=== PATIENT | female | born 1995 | race Caucasian/White ===

== ENCOUNTER 2017-07-24 07:51 | Emergency (ER) | payer OTHER ==
[~2017-07-24] VITALS: Ht 160 cm; Wt 83.9 kg
[~2017-07-24 07:51] MED LIST: GILDESS FE 1-21 EACH PO; LEVAQUIN500 MG PO; LEVAQUIN750 MG; NUVARING VAGIN1 EACH; Z.0.ENABLEX7.5 MG; Z.1.NITROFURANTOIN10; ZOLOFT25 MG PO; [UNRECOGNIZED DRUG - OTHER]
[2017-07-24 09:20] LABS: BASOPHILS # (AUTO) 0.1 (0.0-0.1); BASOPHILS % 0.7 % (0.0-1.0); EOSINOPHILS # (AUTO) 0.1 (0.0-0.4); EOSINOPHILS % 0.9 % (0.0-6.0); HEMATOCRIT 42.8 % (34.2-44.1); HEMOGLOBIN 13.7 g/dL (12.0-16.0); LYMPHOCYTES # (AUTO) 1.5 (1.0-3.2); LYMPHOCYTES % 14.9 % (18.0-39.1); MEAN CORPUSCULAR HEMOGLOBIN 27.2 pg (28-32); MEAN CORPUSCULAR VOLUME 84.9 fL (81-99); MONOCYTES # (AUTO) 0.8 (0.2-0.8); MONOCYTES % 7.6 % (4.4-11.3); NEUTROPHILS # (AUTO) 7.8 (2.1-6.9); NEUTROPHILS % 75.6 % (38.7-80.0); PLATELET COUNT 356 x10e3/uL (140-360); RED BLOOD COUNT 5.04 x10e6/uL (3.6-5.1); RED CELL DISTRIBUTION WIDTH 13.9 % (11.7-14.4)
[2017-07-24 09:21] LABS: BILIRUBIN,URINE NEGATIVE (NEGATIVE); KETONES,URINE NEGATIVE (NEGATIVE); LEUKOCYTE ESTERASE ,URINE TRACE (NEGATIVE); NITRITE,URINE NEGATIVE (NEGATIVE); URINE UROBILINOGEN 0.2 mg/dL (0.2 - 1)
[2017-07-24 09:23] LABS: PROTEIN,URINE DIPSTICK 1+ (NEGATIVE)
[2017-07-24 09:33] LABS: BACTERIA,URINE MODERATE /HPF; CLARITY,URINE CLOUDY (CLEAR); COLOR,URINE YELLOW (YELLOW); EPITHELIAL CELLS,URINE MANY /LPF; RBC,URINE >50 /HPF (0-5)
[2017-07-24 09:45] LABS: ANION GAP 11.4 mmol/L (8-16); BLOOD UREA NITROGEN 12 mg/dL (7-26); BUN/CREATININE RATIO 14 (6-25); CALCIUM 9.5 mg/dL (8.4-10.2); CARBON DIOXIDE 27 mmol/L (22-29); CHLORIDE 107 mmol/L (98-107); CREATININE, SERUM 0.88 mg/dL (0.57-1.11); EST GLOMERULAR FILTRATION RATE > 60 ML/MIN (60-); GLUCOSE 94 mg/dL (74-118); POTASSIUM 4.4 mmol/L (3.5-5.1); SODIUM 141 mmol/L (136-145)
--- NOTE | 2017-07-24 12:56 | Diagnostic Imaging Report ---
EXAM: CT Abdomen and Pelvis WITHOUT contrast INDICATION: Right flank pain, complete duplication of the left ureter COMPARISON: CT abdomen and pelvis from 07/27/2011 TECHNIQUE: Abdomen and pelvis were scanned utilizing a multidetector helical scanner from the lung base to the pubic symphysis without administration of IV contrast. Absence of intravenous contrast decreases sensitivity for detection of focal lesions and vascular pathology. Coronal and sagittal reformations were obtained. Routine protocol was performed. IV CONTRAST: None. ORAL CONTRAST: Water RADIATION DOSE: Total DLP: 621.2 mGy*cm Estimated effective dose: (DLP x 0.015 x size factor) mSv COMPLICATIONS: None FINDINGS: LINES and TUBES: None. LOWER THORAX: Unremarkable HEPATOBILIARY: No focal hepatic lesions. No biliary ductal dilation. GALLBLADDER: No radio-opaque stones or sludge. No wall thickening. SPLEEN: No splenomegaly. PANCREAS: No focal masses or ductal dilatation. ADRENALS: No adrenal nodules KIDNEYS/URETERS: No hydronephrosis. No cystic or solid mass lesions. Bilateral nephrolithiasis has decreased on the right but increased on the left. There are at least 2 up to 3 mm right renal stones and 9 at to 5-mm left renal stones. 7 mm calcified stone within the proximal right ureter 2.5 cm below the UP junction results in mild hydroureteronephrosis. Duplicated left collecting system. No calcified stones in the left ureters. GI TRACT: No abnormal distention, wall thickening, or evidence of bowel obstruction. What appears to be the appendix is atretic and diffusely calcified. PELVIC ORGANS/BLADDER: Unremarkable. Specifically, no calcified stones in the urinary bladder. IUD within the uterus. LYMPH NODES: No lymphadenopathy. VESSELS: Unremarkable. PERITONEUM / RETROPERITONEUM: No free air or fluid. BONES: Unremarkable. SOFT TISSUES: Unremarkable. IMPRESSION: 1. Mild obstructing 7 mm right proximal ureteral stone. 2. Bilateral nephrolithiasis, decreased on the right but increased on the left when compared to 07/27/2011. Signed by: Dr. Veronica Dao M.D. on 07/24/2017 12:53 PM
== END 2017-07-24 12:32 | disposition home or self-care (01) ==
LOC: ER 07:51
DX: R10.31 Right lower quadrant pain (principal); N20.0 Calculus of kidney; N39.0 Urinary tract infection, site not specified
CPT/HCPCS: 36415; 74176; 80048; 81001; 81025; 85025; 87086; 87186; 99284

== ENCOUNTER 2018-04-24 19:54 | Emergency (ER) | payer OTHER ==
[~2018-04-24] VITALS: Ht 160 cm; Wt 83.9 kg
[2018-04-24] MEDS ORDERED: KETOROLAC TROMETHAMINE 60 MG/2 ML VIAL IM ONE ×2 (21:15→22:45)
--- NOTE | 2018-04-24 21:22 | Diagnostic Imaging Report ---
EXAM: CT ABDOMEN AND PELVIS WITH IV CONTRAST INDICATION: Suprapubic pain, hematuria COMPARISON: CT of the abdomen and pelvis without IV contrast and during 2017 TECHNIQUE: The abdomen and pelvis were scanned using a multidetector helical scanner. Coronal and sagittal reformations were obtained. Dose modulation, iterative reconstruction, and/or weight based adjustment of the mA/kV was utilized to reduce the radiation dose to as low as reasonably achievable. Renal stone protocol performed. IV Contrast: None Oral Contrast: None CTDIvol has been reviewed. It is below the limits set by the Radiation Protocol Committee (RPC). FINDINGS: LOWER THORAX: No consolidations LIVER: No masses BILIARY: Normal gallbladder. No ductal dilation. SPLEEN: No masses PANCREAS: No masses ADRENALS: No nodules KIDNEYS: There is a 3 mm stone in the right kidney. No ureteral stones. No hydronephrosis. There are at least 8 stones in the left kidney, the largest measures 6 mm. No ureteral stones. No hydronephrosis. GI TRACT: No wall thickening or obstruction. Surgical changes of appendectomy. VESSELS: Unremarkable PERITONEUM/RETROPERITONEUM: No free air or fluid LYMPH NODES: No lymphadenopathy REPRODUCTIVE ORGANS: IUD within the uterus. BLADDER: Normal SOFT TISSUES: Normal BONES: No suspicious bone lesions. IMPRESSION: Bilateral nephrolithiasis. No obstruction or hydronephrosis. Signed by: Dr. Germaine Ryan M.D. on 04/24/2018 9:19 PM
[2018-04-24] MEDS ORDERED: PYRIDIUM100 MG PO (22:37)
[2018-04-24] MEDS ORDERED: ULTRAM50 MG PO (22:38)
[2018-04-24 22:41] VITALS: BP 125/84
--- OUTSIDE RECORDS SUMMARY | 2018-04-26 14:09 | XMS REPORT | Clinical Summary ---
Author Author [facility] Address Unknown Phone Unavailable Care Team Providers Care Water Resources Project Manager Name Role Phone Nas Rodrigues PCP Allergies No Known Allergies Current Medications Prescription Sig. Disp. Refills Start End Date Status Date phentermine 30 MG capsule Take by mouth every Active morning. acetaminophen-codeine Take 1-2 tablets by mouth 20 tablet 0 08/03/19 08/13/19 (TYLENOL WITH CODEINE #3) every 6 (six) hours as 18 18 300-30 mg per tablet needed for moderate pain for up to 10 days. tamsulosin (FLOMAX) 0.4 Take 1 capsule (0.4 mg 10 capsule 0 08/03/19 08/13/19 mg capsule,extended total) by mouth daily for 18 18 release 24hr 10 days. promethazine (PHENERGAN) Take 1 tablet (25 mg 30 tablet 0 08/03/19 09/02/19 25 MG tablet total) by mouth every 6 18 18 (six) hours as needed for nausea or vomiting for up to 30 days. promethazine (PHENERGAN) Take 1 tablet (12.5 mg 15 tablet 0 03/10/20 04/09/20 12.5 MG tablet total) by mouth every 6 18 18 (six) hours as needed for nausea or vomiting for up to 30 days. phenazopyridine Take 1 tablet (200 mg 10 tablet 0 03/10/20 03/13/20 (PYRIDIUM) 200 MG tablet total) by mouth 3 (three) 18 18 times daily after meals for 3 days. HYDROcodone-acetaminophen Take 1 tablet by mouth 8 tablet 0 03/10/20 03/13/20 (NORCO) 7.5-325 mg per every 6 (six) hours as 18 18 tablet needed for moderate pain for up to 3 days. Max Daily Amount: 4 tablets promethazine (PHENERGAN) Take 1 tablet (50 mg 15 tablet 0 03/10/20 04/09/20 50 MG tablet total) by mouth every 6 18 18 (six) hours as needed for nausea or vomiting for up to 30 days. tamsulosin (FLOMAX) 0.4 Take 1 capsule (0.4 mg 5 capsule 0 03/10/20 03/15/20 mg capsule total) by mouth daily for 18 18 5 days. Active Problems Problem Noted Date Renal stone 03/09/2018 Encounters Date Type Specialty Care Team Description 03/09/2018 Emergency General Internal Medicine Rosmery Rodriguez MD Renal stone (Primary Dx) - Drew Bennett MD 03/10/2018 Meli Andre MD 08/03/2017 Emergency Emergency Medicine Tyrell Beck MD Kidney stone on right side (Primary Dx); Ureterolithiasis after 04/23/2017 Social History Tobacco Use Types Packs/Day Years Used Date Never Smoker Smokeless Tobacco: Never Used Alcohol Use Drinks/Week oz/Week Comments No Sex Assigned at Date Recorded Not on file Last Filed Vital Signs Vital Sign Reading Time Taken Blood Pressure 109/66 03/10/2018 8:07 AM CDT Pulse 73 03/10/2018 8:07 AM CDT Temperature 37.2 C (99 F) 03/10/2018 8:07 AM CDT Respiratory Rate 18 03/10/2018 3:53 AM CDT Oxygen Saturation 99% 03/10/2018 3:53 AM CDT Inhaled Oxygen - - Concentration Weight 49.1 kg (108 lb 3.2 oz) 03/09/2018 11:28 PM CDT Height 160 cm (5' 3") 03/09/2018 5:51 PM CDT Body Mass Index 19.17 03/09/2018 11:28 PM CDT Plan of Treatment Health Maintenance Due Date Last Done Comments CHLAMYDIA SCREENING 2010 CERVICAL CANCER SCREENING 2015 INFLUENZA VACCINE 02/09/2018 04/10/2016 Procedures Procedure Name Priority Date/Time Associated Diagnosis Comments ZZESTIMATED GFR Routine 03/10/2018 Results for this 5:32 AM CDT procedure are in the results section. COMPREHENSIVE METABOLIC Routine 03/10/2018 Results for this PANEL 5:32 AM CDT procedure are in the results section. HC COMPLETE BLD COUNT Routine 03/10/2018 Results for this W/AUTO DIFF 5:32 AM CDT procedure are in the results section. CT RENAL STONE PROTOCOL STAT 03/09/2018 Results for this 6:47 PM CDT procedure are in the results section. HCG QUALITATIVE, URINE STAT 03/09/2018 Results for this SCREEN 6:06 PM CDT procedure are in the results section. URINALYSIS STAT 03/09/2018 Results for this 6:06 PM CDT procedure are in the results section. GRAM STAIN Routine 03/09/2018 Results for this 6:06 PM CDT procedure are in the results section. URINE CULTURE Routine 03/09/2018 Results for this 6:06 PM CDT procedure are in the results section. ZZESTIMATED GFR STAT 03/09/2018 Results for this 5:54 PM CDT procedure are in the results section. HC COMPLETE BLD COUNT STAT 03/09/2018 Results for this W/AUTO DIFF 5:54 PM CDT procedure are in the results section. LIPASE LEVEL STAT 03/09/2018 Results for this 5:54 PM CDT procedure are in the results section. COMPREHENSIVE METABOLIC STAT 03/09/2018 Results for this PANEL 5:54 PM CDT procedure are in the results section. CT RENAL STONE PROTOCOL STAT 08/03/2017 Results for this 12:51 PM MEDIA DEVELOPER procedure are in the results section. ZZESTIMATED GFR STAT 08/03/2017 Results for this 10:21 AM MEDIA DEVELOPER procedure are in the results section. HCG QUALITATIVE, URINE STAT 08/03/2017 Results for this SCREEN 10:21 AM MEDIA DEVELOPER procedure are in the results section. URINALYSIS SCREEN AND STAT 08/03/2017 Results for this MICROSCOPY, WITH REFLEX 10:21 AM MEDIA DEVELOPER procedure are in the TO CULTURE results section. COMPREHENSIVE METABOLIC STAT 08/03/2017 Results for this PANEL 10:21 AM MEDIA DEVELOPER procedure are in the results section. HC COMPLETE BLD COUNT STAT 08/03/2017 Results for this W/AUTO DIFF 10:21 AM MEDIA DEVELOPER procedure are in the results section. GRAM STAIN STAT 08/03/2017 Results for this 10:10 AM MEDIA DEVELOPER procedure are in the results section. URINE CULTURE STAT 08/03/2017 Results for this 10:10 AM MEDIA DEVELOPER procedure are in the results section. after 04/23/2017 Results * Estimated GFR (03/10/2018 5:32 AM) Only the most recent of 3 results within the time period is included. GFR Non Af Amer 88 mL/min/1.[address] [facility] DEPARTMENT OF PATHOLOGY AND GENOMIC MEDICINE GFR Af Amer >90 mL/min/1.[address] [facility] DEPARTMENT OF Comment: PATHOLOGY AND Chronic kidney disease: <60 GENOMIC MEDICINE mL/min/1.73m2 Kidney failure: <15 mL/min/1.73m2 The estimated GFR is calculated from the IDMS-traceable Modification of Diet in Renal Disease Equation. The accuracy of the calculation is poor when the creatinine is normal. Calculated values >90 mL/min/1.73m2 are not reported. This equation has not been validated in children (<18 years), women, the elderly (>70 years), or ethnic groups other than Caucasians and Americans. Specimen Plasma specimen Performing Organization Address City/State/Zipcode Phone Number [facility] DEPARTMENT OF [address] [place] [address] PATHOLOGY AND GENOMIC MEDICINE * CBC with platelet and differential (03/10/2018 5:32 AM) Only the most recent of 3 results within the time period is included. WBC 8.62 4.50 - 11.00 k/uL [facility] DEPARTMENT OF PATHOLOGY AND GENOMIC MEDICINE RBC 4.31 4.20 - 5.50 m/uL [facility] DEPARTMENT OF PATHOLOGY AND GENOMIC MEDICINE HGB 12.8 12.0 - 16.0 g/dL [facility] DEPARTMENT OF PATHOLOGY AND GENOMIC MEDICINE HCT 38.6 37.0 - 47.0 % [facility] DEPARTMENT OF PATHOLOGY AND GENOMIC MEDICINE MCV 89.6 82.0 - 100.[address] [facility] DEPARTMENT OF PATHOLOGY AND GENOMIC MEDICINE MCH 29.7 27.0 - 34.[address] [facility] DEPARTMENT OF PATHOLOGY AND GENOMIC MEDICINE MCHC 33.2 31.0 - 37.0 g/dL [facility] DEPARTMENT OF PATHOLOGY AND GENOMIC MEDICINE RDW - SD 39.8 37.0 - 55.[address] [facility] DEPARTMENT OF PATHOLOGY AND GENOMIC MEDICINE MPV 9.9 8.8 - 13.[address] [facility] DEPARTMENT OF PATHOLOGY AND GENOMIC MEDICINE Platelet count 346 150 - 400 k/uL [facility] DEPARTMENT OF PATHOLOGY AND GENOMIC MEDICINE Nucleated RBC 0.00 /[address] [facility] DEPARTMENT OF PATHOLOGY AND GENOMIC MEDICINE Neutrophils 49.5 39.0 - 69.0 % [facility] DEPARTMENT OF PATHOLOGY AND GENOMIC MEDICINE Lymphocytes 36.7 25.0 - 45.0 % [facility] DEPARTMENT OF PATHOLOGY AND GENOMIC MEDICINE Monocytes 9.9 0.0 - 10.0 % [facility] DEPARTMENT OF PATHOLOGY AND GENOMIC MEDICINE Eosinophils 2.4 0.0 - 5.0 % [facility] DEPARTMENT OF PATHOLOGY AND GENOMIC MEDICINE Basophils 0.8 0.0 - 1.0 % [facility] DEPARTMENT OF PATHOLOGY AND GENOMIC MEDICINE Immature granulocytes 0.7Comment: "Immature 0.0 - 1.0 % [facility] DEPARTMENT OF granulocytes" (promyelocytes, PATHOLOGY AND myelocytes, metamyelocytes) [facility] Specimen Blood Performing Organization Address City/State/Zipcode Phone Number [facility] DEPARTMENT OF [address] [place] [address] PATHOLOGY AND GENOMIC MEDICINE * Comprehensive metabolic panel (03/10/2018 5:32 AM) Only the most recent of 3 results within the time period is included. Sodium 142 135 - 148 mEq/L [facility] DEPARTMENT OF PATHOLOGY AND GENOMIC MEDICINE Potassium 3.9 3.5 - 5.0 mEq/L [facility] DEPARTMENT OF PATHOLOGY AND GENOMIC MEDICINE Chloride 106 98 - 112 mEq/L [facility] DEPARTMENT OF PATHOLOGY AND GENOMIC MEDICINE CO2 24 24 - 31 mEq/L [facility] DEPARTMENT OF PATHOLOGY AND GENOMIC MEDICINE Anion gap 12@ANIO 7 - 15 mEq/L [facility] DEPARTMENT OF PATHOLOGY AND GENOMIC MEDICINE BUN 10 6 - 20 mg/dL [facility] DEPARTMENT OF PATHOLOGY AND GENOMIC MEDICINE Creatinine 0.8 0.5 - 0.9 mg/dL [facility] DEPARTMENT OF PATHOLOGY AND GENOMIC MEDICINE Glucose 86 65 - 99 mg/dL [facility] DEPARTMENT OF PATHOLOGY AND GENOMIC MEDICINE Calcium 8.5 8.3 - 10.2 mg/dL [facility] DEPARTMENT OF PATHOLOGY AND GENOMIC MEDICINE Protein 6.2 (L) 6.3 - 8.3 g/dL [facility] DEPARTMENT OF Comment: PATHOLOGY AND GENOMIC MEDICINE 4.6-7.0 g/dL 1 week 4.4-7.6 g/dL 7 months-1year 5.1-7.3 g/dL 1-2 years5.6-7 .5 g/dL >3 years6.0-8 .0 g/dL 18-150 6.3-8.3 g/dL Albumin 3.4 (L) 3.5 - 5.0 g/dL [facility] DEPARTMENT OF PATHOLOGY AND GENOMIC MEDICINE A/G ratio 1.2 0.7 - 3.[address] [facility] DEPARTMENT OF PATHOLOGY AND GENOMIC MEDICINE Alkaline phosphatase 64 35 - 104 U/L [facility] DEPARTMENT OF PATHOLOGY AND GENOMIC MEDICINE AST 13 10 - 35 U/L [facility] DEPARTMENT OF PATHOLOGY AND GENOMIC MEDICINE ALT 16 5 - 50 U/L [facility] DEPARTMENT OF PATHOLOGY AND GENOMIC MEDICINE Total bilirubin 0.3 0.0 - 1.2 mg/dL [facility] DEPARTMENT OF PATHOLOGY AND GENOMIC MEDICINE Specimen Plasma specimen Performing Organization Address City/State/Zipcode Phone Number [facility] DEPARTMENT OF [address] [place] [address] PATHOLOGY AND GENOMIC MEDICINE * CT Renal Stone Protocol (03/09/2018 6:47 PM) Only the most recent of 2 results within the time period is included. Narrative Performed At PROCEDURE:CT RENAL STONE PROTOCOL RADIANT CLINICAL HISTORY:left flank pain COMPARISON:August 03, 2017 TECHNIQUE: Contiguous 2.5 mm axial images were obtained from the hemidiaphragms to the pubic symphysis without administration of intravenous iodinated or oral contrast media on a multidetector CT scanner using helical scanning technique followed by 2-D sagittal and coronal reconstructions. The dose length product for this procedure was 534 mGy-cm. CT imaging was performed with iterative reconstruction technique and/or automated exposure control to reduce radiation dose. FINDINGS: 1. Lung parenchymal window settings demonstrate no abnormality in the visualized lung bases. 2. A nonobstructing calculus is present in the upper pole of the left kidney and measures 5.2 mm x 4.4 mm 2 tiny calculi are seen more caudally and laterally and the number of calculus fragments of decreased since the prior exam. A tiny 2.4 mm calculus is noted in the mid kidney. Multiple additional small calculi measuring 2 to 3 mm are seen in the remainder of the left kidney. In the right kidney a solitary calculus is present in the anterior mid right kidney and measures 3.1 mm diameter. Mild hydronephrosis and hydroureter is demonstrated on the left side down to the pelvic brim weren't obstructing calculus is present measuring 4.4 mm diameter. 3. No calculi are demonstrated along the course of the ureters. 4. The enteric tract is generally better evaluated if opacified with enteric contrast. The appendix is is not visualized. No inflammatory changes are demonstrated in the mesenteric fat in the right lower quadrant of the abdomen.. 5. No abnormality is demonstrated of the remainder of the intra-abdominal solid organs on this unenhanced study. 6. No abnormality of the abdominal aorta is seen. The IVC is unremarkable on this unenhanced exam. 7. The sagittal and coronal reconstructed images demonstrate no additional abnormality. CT PELVIS- No calculi are seen in the distal ureters or UV junction. No pelvic fluid collections or masses are seen. Note is made of a copper T-type intrauterine device within the endometrial cavity. IMPRESSION: Abnormal study. Mild partial obstructive uropathy of the left upper urinary tract by a tiny calculus in the left ureter at the level of the pelvic brim. Multiple bilateral intrarenal nonobstructing calculi as described. [id number] . Procedure Note Interface, Radiology Results Incoming - 03/09/2018 7:05 PM CDT PROCEDURE: CT RENAL STONE PROTOCOL CLINICAL HISTORY: left flank pain COMPARISON: August 03, 2017 TECHNIQUE: Contiguous 2.5 mm axial images were obtained from the hemidiaphragms to the pubic symphysis without administration of intravenous iodinated or oral contrast media on a multidetector CT scanner using helical scanning technique followed by 2-D sagittal and coronal reconstructions. The dose length product for this procedure was 534 mGy-cm. CT imaging was performed with iterative reconstruction technique and/or automated exposure control to reduce radiation dose. FINDINGS: 1. Lung parenchymal window settings demonstrate no abnormality in the visualized lung bases. 2. A nonobstructing calculus is present in the upper pole of the left kidney and measures 5.2 mm x 4.4 mm 2 tiny calculi are seen more caudally and laterally and the number of calculus fragments of decreased since the prior exam. A tiny 2.4 mm calculus is noted in the mid kidney. Multiple additional small calculi measuring 2 to 3 mm are seen in the remainder of the left kidney. In the right kidney a solitary calculus is present in the anterior mid right kidney and measures 3.1 mm diameter. Mild hydronephrosis and hydroureter is demonstrated on the left side down to the pelvic brim weren't obstructing calculus is present measuring 4.4 mm diameter. 3. No calculi are demonstrated along the course of the ureters. 4. The enteric tract is generally better evaluated if opacified with enteric contrast. The appendix is is not visualized. No inflammatory changes are demonstrated in the mesenteric fat in the right lower quadrant of the abdomen.. 5. No abnormality is demonstrated of the remainder of the intra-abdominal solid organs on this unenhanced study. 6. No abnormality of the abdominal aorta is seen. The IVC is unremarkable on this unenhanced exam. 7. The sagittal and coronal reconstructed images demonstrate no additional abnormality. CT PELVIS- No calculi are seen in the distal ureters or UV junction. No pelvic fluid collections or masses are seen. Note is made of a copper T-type intrauterine device within the endometrial cavity. IMPRESSION: Abnormal study. Mild partial obstructive uropathy of the left upper urinary tract by a tiny calculus in the left ureter at the level of the pelvic brim. Multiple bilateral intrarenal nonobstructing calculi as described. [id number] . Performing Organization Address City/[facility]/Zipcode Phone Number [facility] [address] [place] [address] * Urinalysis (03/09/2018 6:06 PM) Glucose, UA Negative Negative [facility] Bilirubin, UA Negative Negative [facility] Ketones, UA Negative Negative DEPARTMENT OF PATHOLOGY AND GENOMIC MEDICINE, [facility] Specific gravity, UA =>1.030 1.001 - 1.035 [facility] Blood, UA Moderate (A) Negative [facility] pH, UA 6.0 5.0 - 8.5 [facility] Protein, UA 1+ (A) Negative DEPARTMENT OF PATHOLOGY AND GENOMIC MEDICINE, [facility] Urobilinogen, UA <2.0 <2.0 [facility] Nitrite, UA Negative Negative DEPARTMENT OF PATHOLOGY AND GENOMIC MEDICINE, [facility] Leukocyte esterase, UA Negative Negative DEPARTMENT OF PATHOLOGY AND GENOMIC MEDICINE, [facility] Color, UA Yellow [facility] Appearance, UA Sl Cloudy [facility] Specimen Urine Performing Organization Address City/[facility]/Zipcode Phone Number [address], [place] [address] PATHOLOGY AND GENOMIC 140 [facility] * hCG qualitative, urine screen (03/09/2018 6:06 PM) Only the most recent of 2 results within the time period is included. hCG qualitative, urine NegativeComment: Sensitivity DEPARTMENT OF of HCG test: 25 mIU/mL [facility] Specimen Urine Performing Organization Address City/[facility] Phone Number DEPARTMENT OF [address] [place] [address] PATHOLOGY AND GENOMIC 140 [facility] * Gram stain (03/09/2018 6:06 PM) Only the most recent of 2 results within the time period is included. Gram stain result Rare WBC's [facility] DEPARTMENT OF No organisms seen PATHOLOGY AND Comment: GENOMIC MEDICINE Specimen Information Specimen Source: Urine Specimen Site: Urine, clean catch Specimen Urine - Urine, clean catch Performing Organization Address [facility] Phone Number [facility] DEPARTMENT OF [address] [place] [address] PATHOLOGY AND GENOMIC MEDICINE * Urine culture (03/09/2018 6:06 PM) Only the most recent of 2 results within the time period is included. Urine culture isolate Mixed Gram positive samantha [facility] DEPARTMENT OF 10-1 cfu/ml PATHOLOGY AND (A) GENOMIC MEDICINE Comment: Specimen Information Specimen Source: Urine Specimen Site: Urine, clean catch Specimen Urine - Urine, clean catch Performing Organization Address City/[facility] Cent[facility]ode Phone Number [facility] DEPARTMENT OF [address] [place] [address] PATHOLOGY AND GENOMIC MEDICINE * Lipase level (03/09/2018 5:54 PM) Lipase 23 13 - 60 U/L [facility] Specimen Serum Performing Organization Address City/[facility] Centercode Phone Number DEPARTMENT OF [address] [place] [address], [place] [address] PATHOLOGY AND GENOMIC 140 [facility] * Urinalysis screen and microscopy, with reflex to culture (08/03/2017 10:21 AM) Specimen site Clean catch DEPARTMENT OF PATHOLOGY AND GENOMIC MEDICINE, [facility] Color, UA Yellow DEPARTMENT OF PATHOLOGY AND GENOMIC MEDICINE, [facility] Appearance, UA Clear DEPARTMENT OF PATHOLOGY AND GENOMIC MEDICINE, [facility] Specific gravity, UA =>1.030 1.001 - 1.035 [facility] pH, UA 6.0 5.0 - 8.5 [facility] Protein, UA Negative Negative [facility] Glucose, UA Negative Negative [facility] Ketones, UA Negative Negative [facility] Bilirubin, UA Negative Negative [facility] Blood, UA Moderate (A) Negative [facility] Nitrite, UA Negative Negative [facility] Urobilinogen, UA <2.0 <2.0 [facility] Leukocyte esterase, UA Negative Negative [facility] Epithelial cells, UA 8 /HPF [facility] WBC, UA <1 0 - 4 /HPF [facility] RBC, UA >200 (H) 0 - 2 /HPF [facility] Bacteria, UA Moderate (A) None seen [facility] Yeast, UA None seen [facility] Yeast with pseudohyphae, None seen DEPARTMENT OF UA PATHOLOGY AND [facility] Specimen Urine Performing Organization Address City/State/Zipcori Phone Number DEPARTMENT [address], [place] [address] PATHOLOGY AND GENOMIC 140 [facility] after 04/23/2017 Insurance Payer Benefit Subscriber ID Type Phone Address Plan / Group [facility] UMR xxxxxxxx PPO [facility] [employer] [facility] [employer] [address] [facility] amily [phone] [place] [id number]
--- OUTSIDE RECORDS SUMMARY | 2018-04-26 14:10 | XMS REPORT ---
Author Author [facility] Address Unknown Phone Unavailable Care Team Providers Care Transportation Sales Consultant Name Role Phone Tabatha FLORES Unavailable Unavailable Mya CORTES Unavailable Unavailable Problems This patient has no known problems. Allergies, Adverse Reactions, Alerts This patient has no known allergies or adverse reactions. Medications This patient has no known medications. Results Test Description Test Time Test Comments Text Results Atomic Results Result Comments CT ABD/PEL WO CONTRAST-HOPD 2018-04-24 21:12:00 [place] [address] Patient Name: IVAN JACKSON MR #: [id number] : 1995 Age/Sex: 22/F Req #: [id number] Adm Physician: Ordered by: MAR FLORES MD Report #: [id number] Location: [facility] Room/Bed: Procedure: [id number] HOPD/CT ABD/PEL WO CONTRAST-HOPD Exam Date: Exam Time: REPORT STATUS: Signed EXAM: CT ABDOMEN AND PELVIS WITH IV CONTRAST INDICATION: Suprapubic pain, hematuria COMPARISON: CT of the abdomen and pelvis without IV contrast and during 2017 TECHNIQUE: The abdomen and pelvis were scanned using a multidetector helical scanner. Coronal and sagittal reformations were obtained. Dose modulation, iterative reconstruction, and/or weight based adjustment of the mA/kV was utilized to reduce the radiation dose to as low as reasonably achievable. Renal stone protocol performed. IV Contrast: None Oral Contrast: None CTDIvol has been reviewed. It is below the limits set by the Radiation Protocol Committee (RPC). FINDINGS: LOWER THORAX: No consolidations LIVER: No masses BILIARY: Normal gallbladder. No ductal dilation. SPLEEN: No masses PANCREAS: No masses ADRENALS: No nodules KIDNEYS: There is a 3 mm stone in the right kidney. No ureteral stones. No hydronephrosis. There are at least 8 stones in the left kidney, the largest measures 6 mm. No ureteral stones. No hydronephrosis. GI TRACT: No wall thickening or obstruction. Surgical changes of appendectomy. VESSELS: Unremarkable PERITONEUM/RETROPERITONEUM: No free air or fluid LYMPH NODES: No lymphadenopathy REPRODUCTIVE ORGANS: IUD within the uterus. BLADDER: Normal SOFT TISSUES: Normal BONES: No suspicious bone lesions. IMPRESSION: Bilateral nephrolithiasis. No obstruction or hydronephrosis. Signed by: Dr. Josiah Ryan M.D. on 04/24/2018 9:19 PM Dictated By: JOSIAH RYAN MD 18 Transcribed By: RUPERTO on 04/24/182118 COPY TO: MAR FLORES MD CT ABDOMEN/PELVIS WO [place] [address] Patient Name: IVAN JACKSON MR #: [id number] : 1995 Age/Sex: 22/F Req #: [id number] Adm Physician: Ordered by: MILDRED CORTES MD Report #: [id number] Location: ER Room/Bed: Procedure: [id number] CT/CT ABDOMEN/PELVIS WO Exam Date: 07/24/17 Exam Time: 1135 REPORT STATUS: Signed EXAM: CT Abdomen and Pelvis WITHOUT contrast INDICATION: Right flank pain, complete duplication of the left ureter COMPARISON: CT abdomen and pelvis from 07/27/2011 TECHNIQUE: Abdomen and pelvis were scanned utilizing a multidetector helical scanner from the lung base to the pubic symphysis without administration of IV contrast. Absence of intravenous contrast decreases sensitivity for detection of focal lesions and vascular pathology. Coronal and sagittal reformations were obtained. Routine protocol was performed. IV CONTRAST: None. ORAL CONTRAST: Water RADIATION DOSE: Total DLP: 621.2 mGy*cm Estimated effective dose: (DLP x 0.015 x size factor) mSv COMPLICATIONS: None FINDINGS: LINES and TUBES: None. LOWER THORAX: Unremarkable HEPATOBILIARY: No focal hepatic lesions. No biliary ductal dilation. GALLBLADDER: No radio-opaque stones or sludge. No wall thickening. SPLEEN: No splenomegaly. PANCREAS: No focal masses or ductal dilatation. ADRENALS: No adrenal nodules KIDNEYS/URETERS: No hydronephrosis. No cystic or solid mass lesions. Bilateral nephrolithiasis has decreased on the right but increased on the left. There are at least 2 up to 3 mm right renal stones and 9 at to 5-mm left renal stones. 7 mm calcified stone within the proximal right ureter 2.5 cm below the UP junction results in mild hydroureteronephrosis. Duplicated left collecting system. No calcified stones in the left ureters. GI TRACT: No abnormal distention, wall thickening, or evidence of bowel obstruction. What appears to be the appendix is atretic and diffusely calcified. PELVIC ORGANS/BLADDER: Unremarkable. Specifically, no calcified stones in the urinary bladder. IUD within the uterus. LYMPH NODES: No lymphadenopathy. VESSELS: Unremarkable. PERITONEUM / RETROPERITONEUM: No free air or fluid. BONES: Unremarkable. SOFT TISSUES: Unremarkable. IMPRESSION: 1. Mild obstructing 7 mm right proximal ureteral stone. 2. Bilateral nephrolithiasis, decreased on the right but increased on the left when compared to 07/27/2011. Signed by: Dr. Fariha Suárez M.D. on 07/24/2017 12:53 PM Dictated By: FARIHA SUÁREZ MD 1253 Transcribed By: RUPERTO on 07/24/17 1253 COPY TO: MILDRED CORTES MD
== END 2018-04-24 22:47 | disposition home or self-care (01) ==
LOC: FSED 19:54
DX: R30.0 Dysuria (principal); R10.2 Pelvic and perineal pain
CPT/HCPCS: 74176; 81003; 81025; 99283

== ENCOUNTER 2018-05-04 19:06 | Emergency (ER) | payer OTHER ==
[~2018-05-04] VITALS: Ht 160 cm; Wt 83.9 kg
[~2018-05-04 19:06] MED LIST changes: +PYRIDIUM100 MG PO; +ULTRAM50 MG PO
--- OUTSIDE RECORDS SUMMARY | 2018-05-04 19:10 | XMS REPORT | Clinical Summary ---
Author Author [facility] Address Unknown Phone Unavailable Care Team Providers Care External Grinder Name Role Phone Nas Rodrigues PCP Allergies [...] on right side (Primary Dx); Ureterolithiasis after 05/03/2017 Social History Tobacco Use Types Packs/Day Years [...] STAT 08/03/2017 Results for this 12:51 PM ELECTRIC SHOVEL OPERATOR procedure are in the results section. ZZESTIMATED GFR STAT 08/03/2017 Results for this 10:21 AM ELECTRIC SHOVEL OPERATOR procedure are in the results section. HCG QUALITATIVE, URINE STAT 08/03/2017 Results for this SCREEN 10:21 AM ELECTRIC SHOVEL OPERATOR procedure are in the results section. URINALYSIS SCREEN AND STAT 08/03/2017 Results for this MICROSCOPY, WITH REFLEX 10:21 AM ELECTRIC SHOVEL OPERATOR procedure are in the TO CULTURE results section. COMPREHENSIVE METABOLIC STAT 08/03/2017 Results for this PANEL 10:21 AM ELECTRIC SHOVEL OPERATOR procedure are in the results section. HC COMPLETE BLD COUNT STAT 08/03/2017 Results for this W/AUTO DIFF 10:21 AM ELECTRIC SHOVEL OPERATOR procedure are in the results section. GRAM STAIN STAT 08/03/2017 Results for this 10:10 AM ELECTRIC SHOVEL OPERATOR procedure are in the results section. URINE CULTURE STAT 08/03/2017 Results for this 10:10 AM ELECTRIC SHOVEL OPERATOR procedure are in the results section. after 05/03/2017 Results * Estimated GFR (03/10/2018 5:32 AM) Only the most recent of 3 results within the time period is included. GFR Non Af Amer 88 mL/min/1.73 m2 [facility] DEPARTMENT OF PATHOLOGY AND GENOMIC MEDICINE GFR Af Amer >90 mL/min/1.73 m2 [facility] DEPARTMENT OF Comment: PATHOLOGY AND Chronic kidney [...] specimen Performing Organization Address City/State/Zipcode Phone Number [facility] DEPARTMENT OF [address] [place] [address] PATHOLOGY AND GENOMIC MEDICINE * CBC with platelet and differential (03/10/2018 5:32 AM) Only the most recent of 3 results within the time period is included. WBC 8.62 4.50 - 11.00 k/uL [facility] DEPARTMENT OF PATHOLOGY AND GENOMIC MEDICINE RBC 4.31 4.20 - 5.50 m/uL [facility] DEPARTMENT OF PATHOLOGY AND GENOMIC MEDICINE HGB 12.8 12.0 - 16.0 g/dL [facility] DEPARTMENT OF PATHOLOGY AND GENOMIC MEDICINE HCT 38.6 37.0 - 47.0 % [facility] DEPARTMENT OF PATHOLOGY AND GENOMIC MEDICINE MCV 89.6 82.0 - 100.0 fL [facility] DEPARTMENT OF PATHOLOGY AND GENOMIC MEDICINE MCH 29.7 27.0 - 34.0 pg [facility] DEPARTMENT OF PATHOLOGY AND GENOMIC MEDICINE MCHC 33.2 31.0 - 37.0 g/dL [facility] DEPARTMENT OF PATHOLOGY AND GENOMIC MEDICINE RDW - SD 39.8 37.0 - 55.0 fL [facility] DEPARTMENT OF PATHOLOGY AND GENOMIC MEDICINE MPV 9.9 8.8 - 13.2 fL [facility] DEPARTMENT OF PATHOLOGY AND GENOMIC MEDICINE Platelet count 346 150 - 400 k/uL [facility] DEPARTMENT OF PATHOLOGY AND GENOMIC MEDICINE Nucleated RBC 0.00 /100 WBC [facility] DEPARTMENT OF PATHOLOGY AND GENOMIC MEDICINE Neutrophils 49.5 39.0 - 69.0 % [facility] DEPARTMENT OF PATHOLOGY AND GENOMIC MEDICINE Lymphocytes 36.7 25.0 - 45.0 % [facility] DEPARTMENT OF PATHOLOGY AND GENOMIC MEDICINE Monocytes 9.9 0.0 - 10.0 % [facility] DEPARTMENT OF PATHOLOGY AND GENOMIC MEDICINE Eosinophils 2.4 0.0 - 5.0 % [facility] DEPARTMENT OF PATHOLOGY AND GENOMIC MEDICINE Basophils 0.8 0.0 - 1.0 % [facility] DEPARTMENT OF PATHOLOGY AND GENOMIC MEDICINE Immature granulocytes 0.7Comment: "Immature 0.0 - 1.0 % [facility] DEPARTMENT OF granulocytes" (promyelocytes, PATHOLOGY AND myelocytes, metamyelocytes) [facility] Specimen Blood Performing Organization Address City/State/Zipcode Phone Number [facility] DEPARTMENT OF [address] [place] [address] PATHOLOGY AND GENOMIC MEDICINE * Comprehensive metabolic panel (03/10/2018 5:32 AM) Only the most recent of 3 results within the time period is included. Sodium 142 135 - 148 mEq/L [facility] DEPARTMENT OF PATHOLOGY AND GENOMIC MEDICINE Potassium 3.9 3.5 - 5.0 mEq/L [facility] DEPARTMENT OF PATHOLOGY AND GENOMIC MEDICINE Chloride 106 98 - 112 mEq/L [facility] DEPARTMENT OF PATHOLOGY AND GENOMIC MEDICINE CO2 24 24 - 31 mEq/L [facility] DEPARTMENT OF PATHOLOGY AND GENOMIC MEDICINE Anion gap 12@ANIO 7 - 15 mEq/L [facility] DEPARTMENT OF PATHOLOGY AND GENOMIC MEDICINE BUN 10 6 - 20 mg/dL [facility] DEPARTMENT OF PATHOLOGY AND GENOMIC MEDICINE Creatinine 0.8 0.5 - 0.9 mg/dL [facility] DEPARTMENT OF PATHOLOGY AND GENOMIC MEDICINE Glucose 86 65 - 99 mg/dL [facility] DEPARTMENT OF PATHOLOGY AND GENOMIC MEDICINE Calcium 8.5 8.3 - 10.2 mg/dL [facility] DEPARTMENT OF PATHOLOGY AND GENOMIC MEDICINE Protein 6.2 (L) 6.3 - 8.3 g/dL [facility] DEPARTMENT OF Comment: PATHOLOGY AND GENOMIC MEDICINE 4.6-7.0 g/dL 1 week 4.4-7.6 g/dL 7 months-1year 5.1-7.3 g/dL 1-2 years5.6-7 .5 g/dL >3 years6.0-8 .0 g/dL 18-150 6.3-8.3 g/dL Albumin 3.4 (L) 3.5 - 5.0 g/dL [facility] DEPARTMENT OF PATHOLOGY AND GENOMIC MEDICINE A/G ratio 1.2 0.7 - 3.8 [facility] DEPARTMENT OF PATHOLOGY AND GENOMIC MEDICINE Alkaline phosphatase 64 35 - 104 U/L [facility] DEPARTMENT OF PATHOLOGY AND GENOMIC MEDICINE AST 13 10 - 35 U/L [facility] DEPARTMENT OF PATHOLOGY AND GENOMIC MEDICINE ALT 16 5 - 50 U/L [facility] DEPARTMENT OF PATHOLOGY AND GENOMIC MEDICINE Total bilirubin 0.3 0.0 - 1.2 mg/dL [facility] DEPARTMENT OF PATHOLOGY AND GENOMIC MEDICINE Specimen Plasma specimen Performing Organization Address City/State/Zipcode Phone Number [facility] DEPARTMENT OF [address] [place] [address] PATHOLOGY AND GENOMIC MEDICINE * CT Renal [...] Multiple bilateral intrarenal nonobstructing calculi as described. [id number] . Procedure Note Interface, Radiology Results Incoming [...] Multiple bilateral intrarenal nonobstructing calculi as described. [id number] . Performing Organization Address City/[facility]/Zipcode Phone Number [facility] [address] [place] [address] * Urinalysis (03/09/2018 6:06 PM) Glucose, UA Negative Negative [facility] Bilirubin, UA Negative Negative [facility] Ketones, UA Negative Negative DEPARTMENT OF PATHOLOGY AND GENOMIC MEDICINE, [facility] Specific gravity, UA =>1.030 1.001 - 1.035 [facility] Blood, UA Moderate (A) Negative [facility] pH, UA 6.0 5.0 - 8.5 [facility] Protein, UA 1+ (A) Negative DEPARTMENT OF PATHOLOGY AND GENOMIC MEDICINE, [facility] Urobilinogen, UA <2.0 <2.0 [facility] Nitrite, UA Negative Negative DEPARTMENT OF PATHOLOGY AND GENOMIC MEDICINE, [facility] Leukocyte esterase, UA Negative Negative DEPARTMENT OF PATHOLOGY AND GENOMIC MEDICINE, [facility] Color, UA Yellow [facility] Appearance, UA Sl Cloudy [facility] Specimen Urine Performing Organization Address City/[facility]/Zipcode Phone Number [address], [place] [address] PATHOLOGY AND GENOMIC [facility] * hCG qualitative, urine screen (03/09/2018 6:06 PM) Only the most recent of 2 results within the time period is included. hCG qualitative, urine NegativeComment: Sensitivity DEPARTMENT OF of HCG test: 25 mIU/mL [facility] Specimen Urine Performing Organization Address City/[facility] Phone Number DEPARTMENT OF [address] [place] [address] PATHOLOGY AND GENOMIC [facility] * Gram stain (03/09/2018 6:06 PM) Only the most recent of 2 results within the time period is included. Gram stain result Rare WBC's [facility] DEPARTMENT OF No organisms seen PATHOLOGY AND Comment: GENOMIC MEDICINE Specimen Information Specimen Source: Urine Specimen Site: Urine, clean catch Specimen Urine - Urine, clean catch Performing Organization Address [facility] Phone Number [facility] DEPARTMENT OF [address] [place] [address] PATHOLOGY AND GENOMIC MEDICINE * Urine culture (03/09/2018 6:06 PM) Only the most recent of 2 results within the time period is included. Urine culture isolate Mixed Gram positive samantha [facility] DEPARTMENT OF 10-1 cfu/ml PATHOLOGY AND (A) GENOMIC MEDICINE Comment: Specimen Information Specimen Source: Urine Specimen Site: Urine, clean catch Specimen Urine - Urine, clean catch Performing Organization Address City/[facility] Phone Number [facility] DEPARTMENT OF [address] [place] [address] PATHOLOGY AND GENOMIC MEDICINE * Lipase level (03/09/2018 5:54 PM) Lipase 23 13 - 60 U/L [facility] Specimen Serum Performing Organization Address City/[facility] Phone Number DEPARTMENT OF [address] [place] [address], [place] [address] PATHOLOGY AND GENOMIC [facility] * Urinalysis screen and microscopy, with reflex to culture (08/03/2017 10:21 AM) Specimen site Clean catch DEPARTMENT OF PATHOLOGY AND GENOMIC MEDICINE, [facility] Color, UA Yellow DEPARTMENT OF PATHOLOGY AND GENOMIC MEDICINE, [facility] Appearance, UA Clear DEPARTMENT OF PATHOLOGY AND GENOMIC MEDICINE, [facility] Specific gravity, UA =>1.030 1.001 - 1.035 [facility] pH, UA 6.0 5.0 - 8.5 [facility] Protein, UA Negative Negative [facility] Glucose, UA Negative Negative [facility] Ketones, UA Negative Negative [facility] Bilirubin, UA Negative Negative [facility] Blood, UA Moderate (A) Negative [facility] Nitrite, UA Negative Negative [facility] Urobilinogen, UA <2.0 <2.0 [facility] Leukocyte esterase, UA Negative Negative [facility] Epithelial cells, UA 8 /HPF [facility] WBC, UA <1 0 - 4 /HPF [facility] RBC, UA >200 (H) 0 - 2 /HPF [facility] Bacteria, UA Moderate (A) None seen [facility] Yeast, UA None seen [facility] Yeast with pseudohyphae, None seen DEPARTMENT OF UA [facility] Specimen Urine Performing Organization Address City/State/Zipcode Phone Number DEPARTMENT [address], [place] [address] PATHOLOGY AND GENOMIC [facility] after 05/03/2017 Insurance Payer Benefit Subscriber ID Type Phone Address Plan / Group [facility] UMR xxxxxxxx PPO [employer] [facility] Home: [address] [facility] [place] [employer] amily [phone] [place] [id number]
== END 2018-05-04 20:27 | disposition home or self-care (01) ==
LOC: FSED 19:06
DX: R50.9 Fever, unspecified (principal); R05 Cough; R11.2 Nausea with vomiting, unspecified; R19.7 Diarrhea, unspecified; B34.9 Viral infection, unspecified
CPT/HCPCS: 87400; 99283

== ENCOUNTER 2018-07-11 23:05 | Emergency (ER) | payer OTHER ==
[~2018-07-11] VITALS: Ht 160 cm; Wt 83.9 kg
--- OUTSIDE RECORDS SUMMARY | 2018-07-11 23:09 | XMS REPORT | Clinical Summary ---
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 08/13/2017 acetaminophen-codeine Take 1-2 20 tablet 0 (TYLENOL WITH CODEINE #3) tablets by 8 300-30 mg per tablet mouth every 6 (six) hours as needed for moderate pain for up to 10 days. 08/13/2017 tamsulosin (FLOMAX) 0.4 Take 1 10 capsule 0 mg capsule,extended capsule (0.4 8 release 24hr mg total) by mouth daily for 10 days. 09/02/2017 promethazine (PHENERGAN) Take 1 tablet 30 tablet 0 25 MG tablet (25 mg total) 8 by mouth every 6 (six) hours as needed for nausea or vomiting for up to 30 days. 04/09/2018 promethazine (PHENERGAN) Take 1 tablet 15 tablet 0 12.5 MG tablet (12.5 mg 8 total) by mouth every 6 (six) hours as needed for nausea or vomiting for up to 30 days. 03/13/2018 phenazopyridine Take 1 tablet 10 tablet 0 (PYRIDIUM) 200 MG tablet (200 mg 8 total) by mouth 3 (three) times daily after meals for 3 days. 03/13/2018 HYDROcodone-acetaminophen Take 1 tablet 8 tablet 0 (NORCO) 7.5-325 mg per by mouth 8 tablet every 6 (six) hours as needed for moderate pain for up to 3 days. Max Daily Amount: 4 tablets 04/09/2018 promethazine (PHENERGAN) Take 1 tablet 15 tablet 0 50 MG tablet (50 mg total) 8 by mouth every 6 (six) hours as needed for nausea or vomiting for up to 30 days. 03/15/2018 tamsulosin (FLOMAX) 0.4 Take 1 5 capsule 0 mg capsule capsule (0.4 8 mg total) by mouth daily for 5 days. Active Problems Problem Noted Date Renal stone 03/09/2018 Encounters Care Team Description Date Type Specialty Rosmery Rodriguez MD Arriaga, Michael, MD Raza, Turab, MD Renal stone (Primary Dx) 03/09/2018 Emergency General Internal Medicine - 03/10/2018 Tyrell Beck MD Kidney stone on right side (Primary Dx); Ureterolithiasis 08/03/2017 Emergency Emergency Medicine after 07/10/2017 Social History Date Tobacco Use Types Packs/Day Years Used Never Smoker Smokeless Tobacco: Never Used Alcohol Use Drinks/Week oz/Week Comments No Sex Assigned at Date Recorded Not on file Industry Job Start Date Occupation Not on file Not on file Not on file Travel End Travel History Travel Start No recent travel history available. Last Filed Vital Signs Time Taken Vital Sign Reading 03/10/2018 8:07 AM CDT Blood Pressure 109/66 03/10/2018 8:07 AM CDT Pulse 73 03/10/2018 8:07 AM CDT Temperature 37.2 C (99 F) 03/10/2018 3:53 AM CDT Respiratory Rate 18 03/10/2018 3:53 AM CDT Oxygen Saturation 99% - Inhaled Oxygen - Concentration 03/09/2018 11:28 PM CDT Weight 49.1 kg (108 lb 3.2 oz) 03/09/2018 5:51 PM CDT Height 160 cm (5' 3") 03/09/2018 11:28 PM CDT Body Mass Index 19.17 Plan of Treatment Health Maintenance Due Date Last Done Comments CHLAMYDIA SCREENING 2010 CERVICAL CANCER SCREENING 2015 INFLUENZA VACCINE 02/09/2018 04/10/2016 Procedures Comments Procedure Name Priority Date/Time Associated Diagnosis ZZESTIMATED GFR Routine 03/10/2018 5:32 AM CDT COMPREHENSIVE METABOLIC Routine 03/10/2018 PANEL 5:32 AM CDT HC COMPLETE BLD COUNT Routine 03/10/2018 W/AUTO DIFF 5:[address] RENAL STONE PROTOCOL STAT 03/09/2018 6:47 PM CDT HCG QUALITATIVE, URINE STAT 03/09/2018 SCREEN 6:06 PM CDT URINALYSIS STAT 03/09/2018 6:06 PM CDT GRAM STAIN Routine 03/09/2018 6:06 PM CDT URINE CULTURE Routine 03/09/2018 6:06 PM CDT ZZESTIMATED GFR STAT 03/09/2018 5:54 PM CDT HC COMPLETE BLD COUNT STAT 03/09/2018 W/AUTO DIFF 5:54 PM CDT LIPASE LEVEL STAT 03/09/2018 5:54 PM CDT COMPREHENSIVE METABOLIC STAT 03/09/2018 PANEL 5:[address] RENAL STONE PROTOCOL STAT 08/03/2017 12:51 PM REINFORCER ZZESTIMATED GFR STAT 08/03/2017 10:21 AM REINFORCER HCG QUALITATIVE, URINE STAT 08/03/2017 SCREEN 10:21 AM REINFORCER URINALYSIS SCREEN AND STAT 08/03/2017 MICROSCOPY, WITH REFLEX 10:21 AM REINFORCER TO CULTURE COMPREHENSIVE METABOLIC STAT 08/03/2017 PANEL 10:21 AM REINFORCER HC COMPLETE BLD COUNT STAT 08/03/2017 W/AUTO DIFF 10:21 AM REINFORCER GRAM STAIN STAT 08/03/2017 10:10 AM REINFORCER URINE CULTURE STAT 08/03/2017 10:10 AM REINFORCER after 07/10/2017 Results * Estimated GFR (03/10/2018 5:32 AM CDT) Only the most recent of 3 results within the time period is included. GFR Non Af Amer 88 mL/min/1.73 m2 [facility] DEPARTMENT OF PATHOLOGY AND GENOMIC MEDICINE GFR Af Amer >90 mL/min/1.73 m2 [facility] DEPARTMENT OF Comment: PATHOLOGY AND Chronic kidney [...] specimen Performing Organization Address City/State/Zipcode Phone Number [facility] DEPARTMENT OF [address] [place] [address] PATHOLOGY AND GENOMIC MEDICINE * CBC with platelet and differential (03/10/2018 5:32 AM CDT) Only the most recent of 3 results within the time period is included. WBC 8.62 4.50 - 11.00 k/uL [facility] DEPARTMENT OF PATHOLOGY AND GENOMIC MEDICINE RBC 4.31 4.20 - 5.50 m/uL [facility] DEPARTMENT OF PATHOLOGY AND GENOMIC MEDICINE HGB 12.8 12.0 - 16.0 g/dL [facility] DEPARTMENT OF PATHOLOGY AND GENOMIC MEDICINE HCT 38.6 37.0 - 47.0 % [facility] DEPARTMENT OF PATHOLOGY AND GENOMIC MEDICINE MCV 89.6 82.0 - 100.0 fL [facility] DEPARTMENT OF PATHOLOGY AND GENOMIC MEDICINE MCH 29.7 27.0 - 34.0 pg [facility] DEPARTMENT OF PATHOLOGY AND GENOMIC MEDICINE MCHC 33.2 31.0 - 37.0 g/dL [facility] DEPARTMENT OF PATHOLOGY AND GENOMIC MEDICINE RDW - SD 39.8 37.0 - 55.0 fL [facility] DEPARTMENT OF PATHOLOGY AND GENOMIC MEDICINE MPV 9.9 8.8 - 13.2 fL [facility] DEPARTMENT OF PATHOLOGY AND GENOMIC MEDICINE Platelet count 346 150 - 400 k/uL [facility] DEPARTMENT OF PATHOLOGY AND GENOMIC MEDICINE Nucleated RBC 0.00 /100 WBC [facility] DEPARTMENT OF PATHOLOGY AND GENOMIC MEDICINE Neutrophils 49.5 39.0 - 69.0 % [facility] DEPARTMENT OF PATHOLOGY AND GENOMIC MEDICINE Lymphocytes 36.7 25.0 - 45.0 % [facility] DEPARTMENT OF PATHOLOGY AND GENOMIC MEDICINE Monocytes 9.9 0.0 - 10.0 % [facility] DEPARTMENT OF PATHOLOGY AND GENOMIC MEDICINE Eosinophils 2.4 0.0 - 5.0 % [facility] DEPARTMENT OF PATHOLOGY AND GENOMIC MEDICINE Basophils 0.8 0.0 - 1.0 % [facility] DEPARTMENT OF PATHOLOGY AND GENOMIC MEDICINE Immature granulocytes 0.7Comment: "Immature 0.0 - 1.0 % [facility] DEPARTMENT OF granulocytes" (promyelocytes, PATHOLOGY AND myelocytes, metamyelocytes) [facility] Specimen Blood Performing Organization Address City/State/Zipcode Phone Number [facility] [address] [place] [address] PATHOLOGY AND GENOMIC MEDICINE * Comprehensive metabolic panel (03/10/2018 5:32 AM CDT) Only the most recent of 3 results within the time period is included. Sodium 142 135 - 148 mEq/L [facility] DEPARTMENT OF PATHOLOGY AND GENOMIC MEDICINE Potassium 3.9 3.5 - 5.0 mEq/L [facility] DEPARTMENT OF PATHOLOGY AND GENOMIC MEDICINE Chloride 106 98 - 112 mEq/L [facility] DEPARTMENT OF PATHOLOGY AND GENOMIC MEDICINE CO2 24 24 - 31 mEq/L [facility] DEPARTMENT OF PATHOLOGY AND GENOMIC MEDICINE Anion gap 12@ANIO 7 - 15 mEq/L [facility] DEPARTMENT OF PATHOLOGY AND GENOMIC MEDICINE BUN 10 6 - 20 mg/dL [facility] DEPARTMENT OF PATHOLOGY AND GENOMIC MEDICINE Creatinine 0.8 0.5 - 0.9 mg/dL [facility] DEPARTMENT OF PATHOLOGY AND GENOMIC MEDICINE Glucose 86 65 - 99 mg/dL [facility] DEPARTMENT OF PATHOLOGY AND GENOMIC MEDICINE Calcium 8.5 8.3 - 10.2 mg/dL [facility] DEPARTMENT OF PATHOLOGY AND GENOMIC MEDICINE Protein 6.2 (L) 6.3 - 8.3 g/dL [facility] DEPARTMENT OF Comment: PATHOLOGY AND GENOMIC MEDICINE 4.6-7.0 g/dL 1 week 4.4-7.6 g/dL 7 months-1year 5.1-7.3 g/dL 1-2 years5.6-7 .5 g/dL >3 years6.0-8 .0 g/dL 18-150 6.3-8.3 g/dL Albumin 3.4 (L) 3.5 - 5.0 g/dL [facility] DEPARTMENT OF PATHOLOGY AND GENOMIC MEDICINE A/G ratio 1.2 0.7 - 3.8 [facility] DEPARTMENT OF PATHOLOGY AND GENOMIC MEDICINE Alkaline phosphatase 64 35 - 104 U/L [facility] DEPARTMENT OF PATHOLOGY AND GENOMIC MEDICINE AST 13 10 - 35 U/L [facility] DEPARTMENT OF PATHOLOGY AND GENOMIC MEDICINE ALT 16 5 - 50 U/L [facility] DEPARTMENT OF PATHOLOGY AND GENOMIC MEDICINE Total bilirubin 0.3 0.0 - 1.2 mg/dL [facility] DEPARTMENT OF PATHOLOGY AND GENOMIC MEDICINE Specimen Plasma specimen Performing Organization Address City/State/Zipcode Phone Number [facility] DEPARTMENT OF [address] [place] [address] PATHOLOGY AND GENOMIC MEDICINE * CT Renal Stone Protocol (03/09/2018 6:47 PM CDT) Only the most recent of 2 results [...] Multiple bilateral intrarenal nonobstructing calculi as described. [id number] . Procedure Note Hm Interface, Radiology Results Incoming - 03/09/2018 7:05 [...] Multiple bilateral intrarenal nonobstructing calculi as described. [id number] . Performing Organization Address [facility] Phone Number [facility] [address] [place] [address] * Urinalysis (03/09/2018 6:06 PM CDT) Glucose, UA Negative Negative [facility] Bilirubin, UA Negative Negative [facility] Ketones, UA Negative Negative [facility] Specific gravity, UA =>1.030 1.001 - 1.035 [facility] Blood, UA Moderate (A) Negative [facility] pH, UA 6.0 5.0 - 8.5 [facility] Protein, UA 1+ (A) Negative [facility] Urobilinogen, UA <2.0 <2.0 [facility] Nitrite, UA Negative Negative [facility] Leukocyte esterase, UA Negative Negative [facility] Color, UA Yellow [facility] Appearance, UA Sl Cloudy [facility] Specimen Urine Performing Organization Address [facility] Centercode Phone Number DEPARTMENT OF [address] [place] [address] PATHOLOGY AND GENOMIC [facility] * hCG qualitative, urine screen (03/09/2018 6:06 PM CDT) Only the most recent of 2 results within the time period is included. hCG qualitative, urine NegativeComment: Sensitivity DEPARTMENT OF of HCG test: 25 mIU/mL [facility] Specimen Urine Performing Organization Address [facility] Centercode Phone Number DEPARTMENT OF [address] [place] [address] PATHOLOGY AND GENOMIC [facility] * Gram stain (03/09/2018 6:06 PM CDT) Only the most recent of 2 results within the time period is included. Gram stain result Rare WBC's [facility] DEPARTMENT OF No organisms seen PATHOLOGY AND Comment: GENOMIC MEDICINE Specimen Information Specimen Source: Urine Specimen Site: Urine, clean catch Specimen Urine - Urine, clean catch Performing Organization Address [facility] Phone Number [facility] DEPARTMENT OF [address] [place] [address] PATHOLOGY AND GENOMIC MEDICINE * Urine culture (03/09/2018 6:06 PM CDT) Only the most recent of 2 results within the time period is included. Urine culture isolate Mixed Gram positive samantha [facility] DEPARTMENT OF 10-1 cfu/ml PATHOLOGY AND (A) GENOMIC MEDICINE Comment: Specimen Information Specimen Source: Urine Specimen Site: Urine, clean catch Specimen Urine - Urine, clean catch Performing Organization Address [facility] Phone Number [facility] DEPARTMENT OF [address] [place] [address] PATHOLOGY AND GENOMIC MEDICINE * Lipase level (03/09/2018 5:54 PM CDT) Lipase 23 13 - 60 U/L [facility] Specimen Serum Performing Organization Address [facility] Centercode [place] [address] PATHOLOGY AND GENOMIC [facility] * Urinalysis screen and microscopy, with reflex to culture (08/03/2017 10:21 AM REINFORCER) Specimen site Clean catch [facility] Color, UA Yellow [facility] Appearance, UA Clear [facility] Specific gravity, UA =>1.030 1.001 - 1.035 [facility] pH, UA 6.0 5.0 - 8.5 [facility] Protein, UA Negative Negative [facility] Glucose, UA Negative Negative [facility] Ketones, UA Negative Negative [facility] Bilirubin, UA Negative Negative [facility] Blood, UA Moderate (A) Negative [facility] Nitrite, UA Negative Negative [facility] Urobilinogen, UA <2.0 <2.0 [facility] Leukocyte esterase, UA Negative Negative [facility] Epithelial cells, UA 8 /HPF [facility] WBC, UA <1 0 - 4 /HPF [facility] RBC, UA >200 (H) 0 - 2 /HPF [facility] Bacteria, UA Moderate (A) None seen [facility] Yeast, UA None seen [facility] Yeast with pseudohyphae, None seen DEPARTMENT OF UA [facility] Specimen Urine Performing Organization Address City/State/Zipcode Phone Number [address], [place] [address] PATHOLOGY AND GENOMIC [address] [place] [address] after 07/10/2017 Insurance Payer Benefit Subscriber ID Type Phone Address Plan / Group [facility] UMR xxxxxxxx PPO [employer] [place] [address] Advance Directives Patient has advance care planning documents, and code status on file. For more i nformation, please contact: Norris Hale [address] [place] [address] Date Inactivated Comments Code Status Date Activated 03/10/2018 3:37 PM Full Code 03/10/2018 1:04 AM Code Status decision reached by: Patient
--- OUTSIDE RECORDS SUMMARY | 2018-07-11 23:09 | XMS REPORT | Clinical Summary ---
Author Author CHANG Cause.itBenewah Community HospitalAudley Travel [facility] Organization [facility]neRelativity TechnologiesSwed[facility] Center [facility] [place] Address Unknown Phone Unavailable Care Team Providers Care Spirits Model Name Role Phone Nas Rodrigues PCP Allergies No Known Allergies Medications End Date Status Medication Sig Dispensed Refills Start Date Active tamsulosin (FLOMAX) 0.4 Take 1 10 capsule 0 mg Cap 24 hr capsule capsule (0.4 8 mg total) by mouth daily. 06/25/2018 Discontinued multivitamin capsule Take 1 0 capsule by mouth daily. 06/25/2018 Discontinued phenazopyridine Take 1 tablet 10 tablet 0 (PYRIDIUM) 100 MG tablet (100 mg 8 total) by mouth 3 (three) times daily as needed for Pain for up to 3 days. 06/25/2018 Discontinued acetaminophen-codeine Take 1 tablet 10 tablet 0 (TYLENOL #3) 300-30 mg by mouth 8 per tablet every 4 (four) hours as needed for Pain for up to 3 days. Max Daily Amount: 6 tablets 06/25/2018 Discontinued nitrofurantoin, Take 1 10 capsule 0 macrocrystal-monohydrate, capsule (100 8 (MACROBID) 100 MG capsule mg total) by mouth 2 (two) times daily for 5 days. 07/03/2018 ondansetron (ZOFRAN-ODT) Take 1 tablet 20 tablet 0 4 MG disintegrating (4 mg total) 8 tablet by mouth every 8 (eight) hours as needed for up to 7 days. 07/06/2018 traMADol (ULTRAM) 50 mg Take 2 30 tablet 0 tablet tablets (100 8 mg total) by mouth 3 (three) times daily for 10 days. Max Daily Amount: 300 mg 07/03/2018 ciprofloxacin HCl (CIPRO) Take 1 tablet 14 tablet 0 500 MG tablet (500 mg 8 total) by mouth 2 (two) times daily for 7 days. Active Problems Problem Noted Date Leukocytosis 06/25/2018 UTI (urinary tract infection) 06/25/2018 Nephrolithiasis 06/24/2018 Encounters Care Team Description Date Type Specialty Juan Carlos Hayward MD Khera, Mohit, MD Leukocytosis, unspecified type (Primary Dx); Urinary tract infection with hematuria, site unspecified; Nephrolithiasis 06/25/2018 Emergency General Internal Medicine - 06/26/2018 06/25/2018 Travel Link, Scott Hays MD CYSTOSCOPY,URETEROSCOPY 06/24/2018 Surgery Mat Miranda Jr., MD 06/24/2018 Anesthesia Event Link, Scott Hays MD 06/24/2018 Hospital Encounter Resource, [facility] Preadmit Phone 06/22/2018 Hospital Pre-Admission Testing Encounter after 07/10/2017 Social History Date Tobacco Use Types Packs/Day Years Used Never Smoker Smokeless Tobacco: Never Used Alcohol Use Drinks/Week oz/Week Comments No Alcohol Habits Answer Date Recorded How often do you have a drink containing alcohol? Never 06/22/2018 How many drinks containing alcohol do you have on Not asked a typical day when you are drinking? How often do you have six or more drinks on one Not asked occasion? Sex Assigned at Date Recorded Not on file Industry Job Start Date Occupation Not on file Not on file Not on file Travel End Travel History Travel Start No recent travel history available. Last Filed Vital Signs Time Taken Vital Sign Reading 06/26/2018 7:17 AM UTILITY ARBORIST Blood Pressure 104/58 06/26/2018 7:17 AM UTILITY ARBORIST Pulse 66 06/26/2018 7:17 AM UTILITY ARBORIST Temperature 36.2 C (97.1 F) 06/26/2018 7:17 AM UTILITY ARBORIST Respiratory Rate 18 06/26/2018 7:17 AM UTILITY ARBORIST Oxygen Saturation 98% - Inhaled Oxygen - Concentration 06/25/2018 11:00 AM UTILITY ARBORIST Weight 86.2 kg (190 lb) 06/25/2018 11:00 AM UTILITY ARBORIST Height 160 cm (5' 3") 06/25/2018 11:00 AM UTILITY ARBORIST Body Mass Index 33.66 Plan of Treatment Not on file Procedures Comments Procedure Name Priority Date/Time Associated Diagnosis CBC W/PLT COUNT & AUTO Routine 06/26/2018 DIFFERENTIAL 3:56 AM UTILITY ARBORIST CBC W/PLT COUNT & AUTO Routine 06/26/2018 DIFFERENTIAL 3:56 AM UTILITY ARBORIST MAGNESIUM Routine 06/26/2018 3:56 AM UTILITY ARBORIST BASIC METABOLIC PANEL (7) Routine 06/26/2018 3:[address] ABDOMEN/PELVIS STAT 06/25/2018 WITH/WITHOUT IV CONTRAST 2:49 PM UTILITY ARBORIST URINE CULTURE STAT 06/25/2018 2:02 PM UTILITY ARBORIST US RENAL COMPLETE STAT 06/25/2018 1:26 PM UTILITY ARBORIST BLOOD CULTURE STAT 06/25/2018 1:21 PM UTILITY ARBORIST BLOOD CULTURE STAT 06/25/2018 1:21 PM UTILITY ARBORIST SCREEN, URINE STAT 06/25/2018 12:03 PM UTILITY ARBORIST URINALYSIS W/ MICROSCOPIC STAT 06/25/2018 12:03 PM UTILITY ARBORIST CBC W/PLT COUNT & AUTO STAT 06/25/2018 DIFFERENTIAL 12:02 PM UTILITY ARBORIST LIPASE STAT 06/25/2018 12:02 PM UTILITY ARBORIST HEPATIC FUNCTION PANEL STAT 06/25/2018 12:02 PM UTILITY ARBORIST CBC W/PLT COUNT & AUTO STAT 06/25/2018 DIFFERENTIAL 12:02 PM UTILITY ARBORIST BASIC METABOLIC PANEL (7) STAT 06/25/2018 12:02 PM UTILITY ARBORIST FL METER CHANGES RECORDS CLERK IN OR 30 Routine 06/24/2018 MINUTE INCREMENTS 8:21 AM UTILITY ARBORIST STONE ANALYSIS Routine 06/24/2018 8:11 AM UTILITY ARBORIST CYSTOSCOPY,RETROGRADES 06/24/2018 Renal stone 7:30 AM UTILITY ARBORIST Case Notes 60 MINS PER FAX CYSTOSCOPY,STONE 06/24/2018 Renal stone EXTRACTION 7:30 AM UTILITY ARBORIST Case Notes 60 MINS PER FAX CYSTOSCOPY,URETEROSCOPY 06/24/2018 Renal stone 7:30 AM UTILITY ARBORIST Case Notes 60 MINS PER FAX POCT , URINE Routine 06/24/2018 6:00 AM UTILITY ARBORIST after 07/10/2017 Results * CBC with platelet count + automated diff (06/26/2018 3:56 AM UTILITY ARBORIST) Only the most recent of 2 results within the time period is included. WBC 11.7 (H) 3.5 - 10.5 K/L [facility] RBC 3.99 3.93 - 5.22 M/L [facility] Hemoglobin 11.6 11.2 - 15.7 GM/DL [facility] Hematocrit 37.2 34.1 - 44.9 % [facility] MCV 93.2 79.4 - 94.8 fL [facility] MCH 29.1 25.6 - 32.2 pg [facility] MCHC 31.2 (L) 32.2 - 35.5 GM/DL [facility] RDW 12.8 11.7 - 14.4 % [facility] Platelets 296 150 - 450 K/CU MM [facility] MPV 9.9 9.4 - 12.3 fL [facility] nRBC 0 0 - 0 /100 WBC [facility] % Neutros 63 % [facility] % Lymphs 27 % [facility] % Monos 8 % [facility] % Eos 2 % [facility] % Baso 0 % [facility] # Neutros 7.33 (H) 1.56 - 6.13 K/L [facility] # Lymphs 3.11 1.18 - 3.74 K/L [facility] # Monos 0.98 (H) 0.24 - 0.36 K/L [facility] # Eos 0.20 0.04 - 0.36 K/L [facility] # Baso 0.05 0.01 - 0.08 K/L [facility] Immature 1 0 - 1 % [facility] Granulocytes-Relative [facility] Specimen Blood Performing Organization Address City/State/Zipcode Phone Number [address] [address] [facility] * Magnesium (06/26/2018 3:56 AM UTILITY ARBORIST) Magnesium 1.8 1.6 - 2.6 mg/dL [facility] Specimen Blood Performing Organization Address City/State/Zipcode Phone Number [address] [address] [facility] * Basic metabolic panel (06/26/2018 3:56 AM UTILITY ARBORIST) Only the most recent of 2 results within the time period is included. Sodium 139 136 - 145 meq/L [facility] Potassium 4.2 3.5 - 5.1 meq/L [facility] Chloride 107 98 - 107 meq/L [facility] CO2 23 22 - 29 meq/L [facility] BUN 16 7 - 21 mg/dL [facility] Creatinine 0.79 0.57 - 1.25 mg/dL [facility] Glucose 98 70 - 105 mg/dL [facility] Calcium 8.5 8.4 - 10.2 mg/dL [facility] EGFR 89Comment: ESTIMATED GFR IS mL/min/1.[address] [facility] NOT ACCURATE CREATININE [facility] CLEARANCE IN PREDICTING GLOMERULAR FILTRATION RATE. ESTIMATED GFR IS NOT APPLICABLE FOR DIALYSIS PATIENTS. Specimen Blood Performing Organization Address City/State/Zipcode Phone Number [facility] [address] [place] [address] [facility] * CT abdomen/pelvis without & with IV contrast (06/25/2018 2:49 PM UTILITY ARBORIST) Narrative Performed At FINAL REPORT [employer] CT EXAMINATION OF THE ABDOMEN AND PELVIS WITHOUT AND WITH CONTRAST. INDICATION: Sepsis CT Urogram for sepsis s/p stone surgery yesterday TECHNIQUE: CT of the abdomen and pelvis was performed without and with intravenous contrast.This exam was performed according to our departmental dose optimization program which includes automated exposure control, adjustment of the mA and/or kV according to patient size and/or use of iterative reconstructive technique. COMPARISON: No prior studies available for comparison. FINDINGS: The lung bases demonstrate atelectasis. The osseous structures appear intact. The liver, spleen, pancreas, and adrenal glands are unremarkable. The gallbladder is unremarkable. There is no biliary dilatation. The stomach and duodenum are unremarkable. Both kidneys demonstrate nonobstructing renal calculi measuring up to 4 mm on the right and 6 mm on the left. There is no ureteral stones, hydronephrosis or hydroureter. Left periureteral inflammatory change may represent sequela of recently passed stone or infection. There is a small focus of air in the urinary bladder which can be correlated with history of recent instrumentation. There is a tampon in the vagina. The uterus and adnexa are unremarkable. There is no free fluid in the pelvis. There is no bowel obstruction or perforation. There is no abnormal bowel wall thickening. The appendix is not visualized and may be absent. There is no fluid collection or lymphadenopathy. IMPRESSION: 1. Nonobstructing bilateral renal calculi as above. No ureteral stones, hydronephrosis or hydroureter. Left periureteral inflammatory changes represent sequela of recently passed stone or infection. Signed: Eileen Thomas MD Report Verified Date/Time:06/25/2018 15:10:55 Reading Location: [facility] [id number] [facility] Consult Reading Room Procedure Note Interface, External Ris In - 06/25/2018 3:13 PM UTILITY ARBORIST FINAL REPORT CT EXAMINATION OF THE ABDOMEN AND PELVIS WITHOUT AND WITH CONTRAST. INDICATION: Sepsis CT Urogram for sepsis s/p stone surgery yesterday TECHNIQUE: CT of the abdomen and pelvis was performed without and with intravenous contrast. This exam was performed according to our departmental dose optimization program which includes automated exposure control, adjustment of the mA and/or kV according to patient size and/or use of iterative reconstructive technique. COMPARISON: No prior studies available for comparison. FINDINGS: The lung bases demonstrate atelectasis. The osseous structures appear intact. The liver, spleen, pancreas, and adrenal glands are unremarkable. The gallbladder is unremarkable. There is no biliary dilatation. The stomach and duodenum are unremarkable. Both kidneys demonstrate nonobstructing renal calculi measuring up to 4 mm on the right and 6 mm on the left. There is no ureteral stones, hydronephrosis or hydroureter. Left periureteral inflammatory change may represent sequela of recently passed stone or infection. There is a small focus of air in the urinary bladder which can be correlated with history of recent instrumentation. There is a tampon in the vagina. The uterus and adnexa are unremarkable. There is no free fluid in the pelvis. There is no bowel obstruction or perforation. There is no abnormal bowel wall thickening. The appendix is not visualized and may be absent. There is no fluid collection or lymphadenopathy. IMPRESSION: 1. Nonobstructing bilateral renal calculi as above. No ureteral stones, hydronephrosis or hydroureter. Left periureteral inflammatory changes represent sequela of recently passed stone or infection. Signed: Eileen Thomas MD Report Verified Date/Time: 06/25/2018 15:10:55 Reading Location: [address] Consult Reading Room Performing Organization Address City/State/Zipcode Phone Number [employer] * Urine culture (06/25/2018 2:02 PM UTILITY ARBORIST) Result No growth [facility] Specimen Urine Performing Organization Address City/[facility]/Zipcode Phone Number [facility] [address] [place] [address] [facility] * US renal complete (06/25/2018 1:26 PM UTILITY ARBORIST) Narrative Performed At FINAL REPORT [employer] RENAL ULTRASOUND HISTORY: Left-sided abdominal pain, status post left-sided stone removal yesterday TECHNIQUE: Real-time ultrasound of the kidneys was performed. FINDINGS: The kidneys are normal in size, contour, and echogenicity. The right kidney measures 10.4 cm in length and the left kidney measures 10.0 cm in length. Renal cortical thickness measures 0.9 cm on the right and 0.9 cm on the left. No renal mass lesion. No hydronephrosis or calculi are seen. Limited Doppler evaluation of the bilateral main renal arteries and veins demonstrated patency. The bladder is unremarkable. IMPRESSION: No ultrasound abnormalities are visualized in the kidneys. Signed: Mark Rivers MD Report Verified Date/Time:06/25/2018 12:46:56 Reading Location: [address] Transitional Reading Room Procedure Note Interface, External Ris In - 06/25/2018 1:26 PM UTILITY ARBORIST FINAL REPORT RENAL ULTRASOUND HISTORY: Left-sided abdominal pain, status post left-sided stone removal yesterday TECHNIQUE: Real-time ultrasound of the kidneys was performed. FINDINGS: The kidneys are normal in size, contour, and echogenicity. The right kidney measures 10.4 cm in length and the left kidney measures 10.0 cm in length. Renal cortical thickness measures 0.9 cm on the right and 0.9 cm on the left. No renal mass lesion. No hydronephrosis or calculi are seen. Limited Doppler evaluation of the bilateral main renal arteries and veins demonstrated patency. The bladder is unremarkable. IMPRESSION: No ultrasound abnormalities are visualized in the kidneys. Signed: Mark Rivers MD Report Verified Date/Time: 06/25/2018 12:46:56 Reading Location: [facility] C0[facility] Transitional Reading Room Performing Organization Address City/State/Zipcode Phone Number [facility] * Blood culture (06/25/2018 1:21 PM UTILITY ARBORIST) Only the most recent of 2 results within the time period is included. Result No growth in 5 days [facility] Specimen Blood - Line, Venous Performing Organization Address City/[facility]/Zipcode Phone Number [facility] [address] [facility] * Screen, urine (06/25/2018 12:03 PM UTILITY ARBORIST) Preg Test, Ur Negative [facility] Specimen Urine - Urine, Voided Performing Organization Address [facility]/Zipcode Phone Number [address] [address] [facility] * Urinalysis w/Microscopic (06/25/2018 12:03 PM UTILITY ARBORIST) Color, UA Brown [facility] Clarity, UA Clear [facility] Specific [place], UA 1.010 1.001 - 1.035 [facility] pH, UA 6.5 5.0 - 8.0 [facility] Protein, UA 10 mg/dL (A) Negative [facility] Glucose, UA Negative Negative [facility] Ketones, UA Negative Negative [facility] Bilirubin, UA Positive (A) Negative [facility] Blood, UA Moderate (A) Negative [facility] Nitrite, UA Positive (A) Negative [facility] Leukocytes, UA Negative Negative [facility] Urobilinogen, UA 2.0 (H) 0.2 - 1.0 mg/dL [facility] RBC, UA 43 /HPF [facility] WBC, UA 9 /HPF [facility] Bacteria, UA Occasional [facility] Mucus Occasional [facility] Squam Epithel, UA 4 /HPF [facility] Specimen Source Urine, Voided [facility] Specimen Urine - Urine, Voided Performing Organization Address City/State/Zipcode Phone Number [address] [address] [facility] * Lipase (06/25/2018 12:02 PM UTILITY ARBORIST) Lipase 8 8 - 78 U/L [facility] Specimen Blood - Line, Venous Performing Organization Address [facility] Phone Number [address] [address] [phone] [place] [address] * Hepatic function panel (06/25/2018 12:02 PM UTILITY ARBORIST) Protein, Total 7.0 6.0 - 8.3 gm/dL [facility] Albumin 4.2 3.5 - 5.0 g/dL [facility] Total Bilirubin 0.2 0.2 - 1.2 mg/dL [facility] Bilirubin, Direct 0.1 0.1 - 0.5 mg/dL [facility] Alkaline Phosphatase 69 40 - 150 U/L [facility] AST 12 5 - 34 U/L [facility] ALT 10 6 - 55 U/L [facility] Specimen Blood - Line, Venous Performing Organization Address City/[facility] Cent[facility]ode Phone Number [address] [address] [phone] [place] [address] * [place] graduate nurse in or 30 minute increments (06/24/2018 8:21 AM UTILITY ARBORIST) Narrative Performed At FINAL REPORT [facility] Fluoroscopy. History: Intraoperative. Findings:Radiologist was not present for the exam.Fluoroscopy was not performed by the undersigned.One image from intraoperative fluoroscopy demonstrates presence of ureteral instrumentation. Fluoroscopy time is 35 seconds. IMPRESSION: Intraoperative exam as described above. Signed: Joseph Mendiola MD Report Verified Date/Time:06/24/2018 14:43:53 Reading Location: [address] Radiology Reading Room Procedure Note Interface, External Ris In - 06/24/2018 2:46 PM UTILITY ARBORIST FINAL REPORT Fluoroscopy. History: Intraoperative. Findings: Radiologist was not present for the exam. Fluoroscopy was not performed by the undersigned. One image from intraoperative fluoroscopy demonstrates presence of ureteral instrumentation. Fluoroscopy time is 35 seconds. IMPRESSION: Intraoperative exam as described above. Signed: Joseph Mendiola MD Report Verified Date/Time: 06/24/2018 14:43:53 Reading Location: [address] Radiology Reading Room Performing Organization Address [facility] Phone Number [facility] * STONE ANALYSIS (06/24/2018 8:11 AM UTILITY ARBORIST) Stone Source STONE [facility] Nidus Not observed [facility] COMPONENT 1 ([facility]) See Below [facility] Comment: INC[facility]PORATED Calcium Oxalate Dihydrate (Weddellite) 60% Calcium Oxalate Monohydrate ([place]) 20% Carbonate Apatite (Dahllite) 20% COMPONENT 2 ([facility]) DNR [facility] Stone Weight 0.0310 g [facility] Comment: INCORPORATED The image will follow, unless test is cancelled or no picture is available to report. This test was developed and its analytical performance characteristics have been determined by [facility]. It has not been cleared or approved by the US Food and Drug Administration. This assay has been validated pursuant to the CLIA regulations and is used for clinical purposes. Specimen Calculus - Kidney, Left Narrative Performed At Performing Lab [facility] *[facility] [employer] [place] [facility], [address] [place] [address] Tabatha Hudson MD, PhD Performing Organization Address [facility] Centercode Phone Number [employer] [facility], [address] [place], [place] INC[facility]POR[facility] [address] [address] * POCT , urine (06/24/2018 6:00 AM UTILITY ARBORIST) Test Urine, POC Negative Control line present?, Yes POC Background clear?, POC Yes UPT Cassette Lot #, POC [id number] UPT Cassette Expiration 11/09/2019 Date, POC after 07/10/2017 Insurance Payer Benefit Subscriber ID Type Phone Address Plan / Group [facility] xxxxxxxx [facility] MEDICAID MEDICAID xxxxxxxxx Medicaid OF [place] Advance Directives For more information, please contact: [facility] [address] [place], [place] [id number] Date Inactivated Comments Code Status Date Activated Full Code 06/25/2018 2:01 PM This code status was determined by: Patient
== END 2018-07-11 23:38 | disposition home or self-care (01) ==
LOC: FSED 23:05
DX: R50.9 Fever, unspecified (principal); R05 Cough; H66.001 Acute suppurative otitis media without spontaneous rupture of ear drum, right ear; J00 Acute nasopharyngitis [common cold]
CPT/HCPCS: 99282

== ENCOUNTER 2022-10-25 17:12 | Emergency (ER) | payer BC, OTHER ==
[~2022-10-25] VITALS: Ht 160 cm; Wt 83.9 kg
[2022-10-25] MEDS ORDERED: SODIUM CHLORIDE 0.9% 1000ML 1,000 ML IV STA (17:26)
[2022-10-25] MEDS ORDERED: ONDANSETRON HCL INJ 2MG/ML 2ML 2 MG/ML VIAL IV ONE (17:30)
[2022-10-25] MEDS ORDERED: FAMOTIDINE 20 MG/2 ML VIAL IV ONE ×2 (17:30→17:38)
[2022-10-25] MEDS ORDERED: KETOROLAC TROMETHAMINE 30 MG/ML VIAL IV ONE (17:30)
[2022-10-25] MEDS ORDERED: KETOROLAC TROMETHAMINE 30 MG/ML VIAL ONE (17:37)
[2022-10-25] MEDS ORDERED: ONDANSETRON HCL INJ 2MG/ML 2ML 2 MG/ML VIAL ONE (17:38)
[2022-10-25] MEDS ORDERED: SODIUM CHLORIDE 0.9% 1000ML 1,000 ML ONE (17:38)
[2022-10-25] MEDS ORDERED: Morphine 4mg INJECTION 4 MG/ML INJ IV STA ×2 (18:20→18:22)
[2022-10-25] MEDS ORDERED: Morphine 4mg INJECTION 4 MG/ML INJ ONE (18:25)
[2022-10-25] MEDS ORDERED: Morphine 4mg INJECTION 4 MG/ML INJ IV ONE (18:30)
[2022-10-25] MEDS ORDERED: ULTRAM 50MG50 MG PO (20:42)
[2022-10-25] MEDS ORDERED: TYLENOL325 MG PO (20:42)
[2022-10-25] MEDS ORDERED: ONDANSETRON ODT4 MG PO (20:42)
[2022-10-25] MEDS ORDERED: HYDROCODONE/APAP 5MG-325MG TAB PO ONE (20:45)
== END 2022-10-25 21:38 | disposition home or self-care (01) ==
LOC: FSED 17:25
DX: R10.9 Unspecified abdominal pain (principal); N20.0 Calculus of kidney; R11.0 Nausea; G89.0 Central pain syndrome
CPT/HCPCS: 74176; 80053; 81003; 85025; 99284; J1885; J2270; J2405; J7030

== ENCOUNTER 2022-11-13 21:01 | Emergency (ER) | payer BC ==
[~2022-11-13] VITALS: Ht 160 cm; Wt 82.6 kg
[~2022-11-13 21:01] MED LIST changes: +ONDANSETRON ODT4 MG PO; +TYLENOL325 MG PO; +ULTRAM 50MG50 MG PO
[2022-11-13] MEDS ORDERED: SODIUM CHLORIDE 0.9% 1000ML 1,000 ML IV STA (21:10)
[2022-11-13] MEDS ORDERED: FAMOTIDINE 20 MG/2 ML VIAL IV ONE ×2 (21:15→21:32)
[2022-11-13] MEDS ORDERED: KETOROLAC TROMETHAMINE 30 MG/ML VIAL IV ONE (21:15)
[2022-11-13] MEDS ORDERED: PROMETHAZINE 25MG/ NS 50ML (IV) IV ONE (21:15)
[2022-11-13] MEDS ORDERED: PROMETHAZINE HCL (IM) 25 MG/ML VIAL IM ONE (21:31)
[2022-11-13] MEDS ORDERED: KETOROLAC TROMETHAMINE 30 MG/ML VIAL ONE (21:31)
[2022-11-13] MEDS ORDERED: SODIUM CHLORIDE 0.9% 1000ML 1,000 ML ONE (21:32)
[2022-11-13] MEDS ORDERED: Morphine 4mg INJECTION 4 MG/ML INJ IV STA (23:01)
[2022-11-13] MEDS ORDERED: ACETAMINOPHEN-1 EAC4 PO (23:05)
[2022-11-13] MEDS ORDERED: ONDANSETRON ODT4 MG PO (23:05)
[2022-11-13] MEDS ORDERED: TYLENOL325 MG PO (23:05)
[2022-11-13] MEDS ORDERED: Morphine 4mg INJECTION 4 MG/ML INJ ONE (23:18)
[2022-11-13 23:32] VITALS: BP 118/79
== END 2022-11-13 23:32 | disposition home or self-care (01) ==
LOC: FSED 21:05
DX: R31.9 Hematuria, unspecified (principal); N13.2 Hydronephrosis with renal and ureteral calculous obstruction; Z98.84 Bariatric surgery status
CPT/HCPCS: 74176; 80053; 81003; 81025; 85025; 96374; 96376; 99284; J1885; J2270; J2550; J7030

== ENCOUNTER 2023-01-02 23:34 | Emergency (ER) | payer BC ==
[~2023-01-02] VITALS: Ht 162.6 cm; Wt 76.2 kg
[~2023-01-02 23:34] MED LIST changes: +ACETAMINOPHEN-1 EAC4 PO
[2023-01-02 23:45] VITALS: O2SAT 97
[2023-01-02] MEDS ORDERED: LIDOCAINE VISC 2% SOLN 15 ML UDC ONE (23:57)
[2023-01-02] MEDS ORDERED: MAGNESIUM/ALUMINUM/SIMETHICONE 30 ML UDC ONE (23:57)
[2023-01-02] MEDS ORDERED: BELLADONNA ALK/PHENOBARBITAL 5 ML UDC ONE (23:57)
[2023-01-03] MEDS ORDERED: BELLADONNA ALK/PHENOBARBITAL 5 ML UDC PO ONE
[2023-01-03] MEDS ORDERED: MAGNESIUM/ALUMINUM/SIMETHICONE 30 ML UDC PO ONE
[2023-01-03] MEDS ORDERED: LIDOCAINE VISC 2% SOLN 15 ML UDC PO ONE
[2023-01-03] MEDS ORDERED: PANTOPRAZOLE SO40 MG PO (00:51)
== END 2023-01-03 01:26 | disposition home or self-care (01) ==
LOC: FSED 23:40
DX: R07.89 Other chest pain (principal); R10.13 Epigastric pain; N18.9 Chronic kidney disease, unspecified; Z87.442 Personal history of urinary calculi; Z98.84 Bariatric surgery status
CPT/HCPCS: 71045; 93005; 99283